=== PATIENT | female | born 2000 | race Caucasian/White ===

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

== ENCOUNTER 2020-08-02 21:37 | Emergency (ER) | payer BC, OTHER ==
--- OUTSIDE RECORDS SUMMARY | 2020-08-02 21:40 | XMS REPORT | Continuity of Care Document ---
:2000 Author Organization [facility] t Address 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 [place] knee in knee 10-26 [facility]: st 00 Anxiety Anxiety Disease Active [place] 07-07 [facility] 00:00: st 00 Syncope Syncope Disease Active [place] and and 07-07 [facility] collapse collapse 00:00: st 00 Tension-ty Tension-ty Disease Active [place] pe pe 07-07 [facility] headache, headache, 00:00: st not not 00 intractabl intractabl e e Allergies, Adverse Reactions, Alerts Allergy Allergy Status Severity Reaction(s) Onset Inactive Treating Comm ents Source Name Type Date Date Clinician Penicill Propensi Active Hives 2018-10 [place] to 11-14 [facility] adverse 00:00: st reaction 00 s to drug Family History Family Member Diagnosis Comments Start Date Stop Date Source Natural father No Known Problems Nanette kessler Religion Natural mother No Known Problems Nanette kessler Religion Natural sister No Known Problems Nanette Romero Social History Social Habit Start Date Stop Date Quantity Comments Source Sex Assigned At [facility] ethodist Tobacco use and 2019-09-13 2019-09-13 Never used [facility] ethodist exposure 00:00:00 00:00:00 Alcohol intake 2019-09-13 2019-09-13 Current [facility] thodist 00:00:00 00:00:00 non-drinker of alcohol (finding) Smoking Status Start Date Stop Date Source Never smoker [place] [facility] t Medications Ordered Filled Start Stop Current Ordering Indication Dosage Frequency Signature Comments Components Source Medication Medication Date Date Medication? Clinician (SIG) Name Name meloxicam 2016-10 2019- No 15mg QD Take 1 [place] (MOBIC) 15 09-13 tablet (15 Me th[facility] mg tablet 00:00: 00:00 mg total) st 00 :00 by mouth daily. amitriptyli 2018- No 10mg Take 10 mg [place] (ELAVIL) 07-07 by mouth. Me thodi 10 MG 00:00: 00:00 st tablet 00 :00 Vital Signs Vital Name Observation Time Observation Value Comments Source Systolic blood 2019-09-13 15:31:00 114 mm[Hg] [place] [facility] pressure Diastolic blood 2019-09-13 15:31:00 76 mm[Hg] [place] [facility] pressure Heart rate 2019-09-13 15:31:00 84 /min [place] Religion Body temperature 2019-09-13 15:31:00 36.67 [place] [facility] Body height 2019-09-13 15:31:00 165.1 cm [place] [facility] Body weight 2019-09-13 15:31:00 95.709 kg Jj Bushist BMI 2019-09-13 15:31:00 35.11 kg/m2 [place] [facility] Oxygen saturation in 2019-09-13 15:31:00 97 /min [place] [facility] Arterial blood by Pulse oximetry Procedures Procedure Date / Time Performed Performing Clinician Sourc e US GALLBLADDER 2019-09-20 09:00:00 Deja Cruz Plan of Care Planned Activity Planned Date Details Comments Source Future Scheduled 2020-09-13 CHLAMYDIA Postponed from Jj Lynch ethodist Test 00:00:00 SCREENING [code = 2015 (Not CHLAMYDIA Indicated) SCREENING] Future Scheduled 2020-05-12 INFLUENZA VACCINE [place] [facility] Test 00:00:00 [code = INFLUENZA VACCINE] Encounters Start End Encounter Admission Attending Care Care Encounter Source Date/Time Date/Time Type Type Clinicians Facility Department ID 2019-05-05 2019-05-05 Emergency E [id number] 20:27:00 20:27:00 Results Test Description Test Time Test Results Result Source Comments Comments US Gallbladder 2019-09-11 Interface, Radiology [place] 0 Results Incoming - Method ist 09:50:01 09/20/2019 9:53 AM CSTEXAMINATION: US GALLBLADDERCLINICAL HISTORY: 18 years Female R10.11 Right upper quadrant pain, RUQ pain cholecystitis suspectedCOMPARISON: None.FINDINGS:Gallbladd er: The gallbladder is without evidence of calculi. The gallbladder wall is not thickened and there is no pericholecystic fluid.CBD: 3 mm, within normal limits.Liver: The liver demonstrates normal echogenicity without focal mass or intrahepatic biliary ductal dilatation.Portal vein: The portal vein demonstrates normal hepatopetal flow. The portal vein measures 0.9 cm.IMPRESSION:Normal gallbladder ultrasound examination.[id number]
--- OUTSIDE RECORDS SUMMARY | 2020-08-02 21:40 | XMS REPORT | Clinical Summary ---
:2000 Author Organization [facility] Address [address] [place] [address] Care Team Providers Name Role Phone Heather Cruz MD Primary Care Provider Allergies Active Allergy Reactions Severity Noted Date Comments Penicillins Hives 09/13/2019 Medications Medication Sig Dispensed Refills Start Date End Date Status amitriptyline Take 10 mg 0 07/07/2016 Disc ontinued (Med (ELAVIL) 10 MG by mouth. 9 List Cleanup) tablet meloxicam (MOBIC) Take 1 21 tablet 0 08/04/2017 D iscontinued (Med 15 mg tablet tablet (15 9 List C leanup) mg total) by mouth daily. Active Problems Problem Noted Date Loose body in knee 08/26/2016 Anxiety 07/07/2016 Syncope and collapse 07/07/2016 Tension-type headache, not intractable 07/07/2016 Encounters Date Type Specialty Care Team Description 09/20/2019 Hospital Encounter Radiology Deja Cruz abdom inal pain MD Heather 09/20/2019 Orders Only Family Medicine Deja Cruz pain (Pr imary Dx) MD Heather 09/13/2019 Office Visit Family Medicine Deja Cruz abdomina l pain MD Heather (Primary Dx) after 08/02/2019 Surgical History Surgery Date Site/Laterality Comments ORTHOPEDIC SURGERY 09/10/2017 Right knee Family History Medical History Relation Name Comments No Known Problems Father No Known Problems Mother No Known Problems Sister Relation Name Status Comments Father Alive Mother Alive Sister Alive Social History Tobacco Use Types Packs/Day Years Used Date Never Smoker Smokeless Tobacco: Never Used Tobacco Cessation: Counseling Given: No Alcohol Use Drinks/Week oz/Week Comments No Sex Assigned at Date Recorded Not on file Last Filed Vital Signs Vital Sign Reading Time Taken Comments Blood Pressure 114/76 09/13/2019 3:31 PM [facility] Pulse 84 09/13/2019 3:31 PM [facility] Temperature 36.7 C (98 F) 09/13/2019 3:31 PM [facility] Respiratory Rate - - Oxygen Saturation 97% 09/13/2019 3:31 PM [facility] Inhaled Oxygen Concentration - - Weight 95.7 kg (211 lb) 09/13/2019 3:31 PM [facility] Height 165.1 cm (5' 5") 09/13/2019 3:31 PM [facility] Body Mass Index 35.11 09/13/2019 3:31 PM [facility] Plan of Treatment Health Maintenance Due Date Last Done Comments INFLUENZA VACCINE 05/12/2020 CHLAMYDIA SCREENING 09/13/2020 Postponed fr om 2015 (Not Indicated) Procedures Procedure Name Priority Date/Time Associated Diagnosis Comme nts US GALLBLADDER Routine 09/20/2019 9:00 AM RUQ abdominal pain Results for this [facility] procedure are i n the results section . after 08/02/2019 Results US Gallbladder (09/20/2019 9:00 AM [facility]) Specimen Narrative Performed At EXAMINATION: US GALLBLADDER [facility] CLINICAL HISTORY: 18 years Female R10.11 Right upper q uadrant pain, RUQ pain cholecystitis suspected COMPARISON: None. FINDINGS: Gallbladder: The gallbladder is without evidence of ca lculi. The gallbladder wall is not thickened and th ere is no pericholecystic fluid. CBD: 3 mm, within normal limits. Liver: The liver demonstrates normal echogenicity with out focal mass or intrahepatic biliary ductal dilatation. Portal vein: The portal vein demonstrates normal hepat opetal flow. The portal vein measures 0.9 cm. IMPRESSION: Normal gallbladder ultrasound examinatio n. [id number] Procedure Note Hm Interface, Radiology Results Incoming - 09/20/2019 9:53 AM [facility] EXAMINATION: US GALLBLADDER CLINICAL HISTORY: 18 years Female R10.11 Right upper quadrant pain, RUQ pain cholecystitis suspected COMPARISON: None. FINDINGS: Gallbladder: The gallbladder is without evidence of calculi. The gallbladder wall is not thickened and there is no pericholecystic fluid. CBD: 3 mm, within normal limits. Liver: The liver demonstrates normal ech ogenicity without focal mass or intrahepatic biliary ductal dilatation. Portal vein: The portal vein demonstrate s normal hepatopetal flow. The portal vein measures 0.9 cm. IMPRESSION: Normal gallbladder ultrasound examinatio n. 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
[2020-08-02] MEDS ORDERED: KETOROLAC 30 MG/ML INJ ONE (23:04)
[2020-08-02 23:10] LABS: Absolute Lymphocytes (CBC) 3.3 K/uL (0.7-4.9); Basophils % 0.2 % (0-1.3); Hematocrit 38.6 % (36.0-45.0); MPV 7.9 fL (7.6-11.3); RBC Red Blood Cell Count 4.95 M/uL (3.86-4.86)
[2020-08-02 23:11] LABS: Protime INR 1.02
[2020-08-02 23:18] LABS: ALT/SGPT 21 U/L (12-78); AST/SGOT 14 U/L (15-37); Albumin 3.9 g/dL (3.4-5.0); Alkaline Phosphatase 86 U/L (45-117); BUN Blood Urea Nitrogen 7 mg/dL (7-18); Bicarbonate 26 mmol/L (21-32); Bilirubin Direct < 0.1 mg/dL (0-0.2); Bilirubin Total 0.3 mg/dL (0.2-1.0); CKMB Creatine Kinase MB < 1.0 ng/mL (0.3-3.6); Creatine Phosphokinase 62 U/L (26-192); Glucose Level 87 mg/dL (74-106); Lipase 93 U/L (73-393); Magnesium 2.2 mg/dL (1.8-2.4); NT PRO-BNP 17 pg/mL (<125); Potassium 3.7 mmol/L (3.5-5.1); Protein, Total 8.6 g/dL (6.4-8.2); Sodium Level 139 mmol/L (136-145); Troponin (Emerg Dept Use Only) < 0.02 ng/mL (0.0-0.045)
[2020-08-03 00:45] LABS: Urine Blood 3+ (NEG); Urine Glucose NEGATIVE (NEG); Urine Protein TRACE (NEG); Urine Specific Gravity >1.030 (1.005-1.030)
--- NOTE | 2020-08-03 02:01 | ER ---
Nurse's Notes [facility] Name: Myriam Marte Age: 19 yrs Sex: Female : 2000 Arrival Date: 08/02/2020 Time: 21:52 Bed 14 Private MD: Diagnosis: Strain of muscle and tendon of front wall of thorax;Strain of muscle and tendon of back wall of thorax Presentation: 08/02 22:12 Chief complaint: Patient states: 2 days ago she started having back pain which is bb similar to when she had pneumonia last year, the pain is getting worse making it difficult for her to take a deep breath. Coronavirus screen: At this time, the client does not indicate any symptoms associated with coronavirus-19. Ebola Screen: No symptoms or risks identified at this time. Initial Sepsis Screen: Does the patient meet any 2 criteria? No. Patient's initial sepsis screen is negative. Does the patient have a suspected source of infection? No. Patient's initial sepsis screen is negative. Risk Assessment: Do you want to hurt yourself or someone else? Patient reports no desire to harm self or others. Onset of symptoms was July 31, 2020. 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 - Social history:: Smoking status: Patient denies any tobacco usage or history of. Screenin:30 Abuse screen: Denies threats or abuse. Denies injuries from another. Nutritional ca1 screening: No deficits noted. Tuberculosis screening: No symptoms or risk factors identified. Fall Risk IV access (20 points). Assessment: 22:30 General: Appears in no apparent distress. comfortable, Behavior is calm, cooperative, ca1 appropriate for age. Pain: Complains of pain in back and right lateral posterior chest Pain currently is 6 out of 10 on a pain scale. Pain began 1 day ago. Neuro: Level of Consciousness is awake, alert, obeys commands, Oriented to person, place, time, situation. Cardiovascular: Heart tones S1 S2 present Capillary refill < 3 seconds Patient's skin is warm and dry. Rhythm is sinus rhythm. Respiratory: Airway is patent Respiratory effort is even, unlabored, Respiratory pattern is regular, symmetrical, Breath sounds are clear bilaterally. GI: Abdomen is round non-distended, Bowel sounds present X 4 quads. Abd is soft and non tender X 4 quads. : No signs and/or symptoms were reported regarding the genitourinary system. EENT: No signs and/or symptoms were reported regarding the EENT system. Derm: Skin is intact, is healthy with good turgor, Skin is pink, warm \T\ dry. Musculoskeletal: Circulation, motion, and sensation intact. Capillary refill < 3 seconds. 23:23 Reassessment: Patient appears in no apparent distress at this time. Patient and/or ca1 family updated on plan of care and expected duration. Pain level reassessed. Patient is alert, oriented x 3, equal unlabored respirations, skin warm/dry/pink. 08/03 02:09 Reassessment: Patient and/or family updated on plan of care and expected duration. Pain ea level reassessed. Patient is alert, oriented x 3, equal unlabored respirations, skin warm/dry/pink. Discharge instruction given to patient, verbalized the understanding of instruction. Pt left ED ambulatory tolerating well. Patient states symptoms have improved. Vital Signs: 08/02 22:12 BP 123 / 83; Pulse 101; Resp 18 S; Temp 99.3(O); Pulse Ox 99% on R/A; Weight 97.52 kg bb (R); Height 5 ft. 5 in. (165.10 cm) (R); Pain 7/10; 23:23 BP 125 / 72; Pulse 97; Resp 18 S; Pulse Ox 100% on R/A; ca1 08/03 02:00 BP 103 / 78; Pulse 80; Resp 18; Pulse Ox 98% ; ea 08/02 22:12 Body Mass Index 35.78 (97.52 kg, 165.10 cm) bb ED Course: 08/02 21:52 Patient arrived in ED. am2 22:07 Siddhartha Wilder MD is Attending Physician. tw4 22:18 Rika Foss, RYAN is Primary Nurse. ca1 22:23 Triage completed. bb 22:24 Arm band placed on Patient placed in an exam room, on a stretcher, on pulse oximetry. bb 22:30 Patient has correct armband on for positive identification. Placed in gown. Bed in low ca1 position. Call light in reach. Side rails up X 1. monitor technician on. Pulse ox on. NIBP on. Warm blanket given. 22:37 Inserted saline lock: 20 gauge in right antecubital area, using aseptic technique. ca1 Blood collected. 22:37 No provider procedures requiring assistance completed. Initial lab(s) drawn, by me, ca1 sent to lab. First set of blood cultures drawn by me. 22:41 EKG done, by ED staff, reviewed by Siddhartha Wilder MD. tt3 22:44 XRAY CXR (1 view) In Process Unspecified. EDMS 23:00 Second set of blood cultures drawn by me. ca1 23:03 Inserted saline lock: 22 gauge in right hand, using aseptic technique. Blood collected. ca1 08/03 00:48 CT Chest For PE Angio In Process Unspecified. EDMS 02:10 IV discontinued, intact, bleeding controlled, No redness/swelling at site. Pressure ea dressing applied. Administered Medications: 08/02 22:55 Drug: TORadol 30 mg Route: IVP; Site: right antecubital; ca1 08/03 02:10 Follow up: Response: No adverse reaction ea Outcome: 02:00 Discharge ordered by . tw4 02:10 Discharged to home ambulatory. ea 02:10 Condition: stable 02:10 Discharge instructions given to patient, Instructed on discharge instructions, follow up and referral plans. medication usage, Demonstrated understanding of instructions, follow-up care, medications, Prescriptions given X 1. 02:11 Patient left the ED. ea Signatures: Dispatcher [employer] EDMS Suly Clay RN RN Aicha Hernandes am2 Maribell Lantigua RN Siddhartha Salguero ea, MD MD tw4 Rika Foss RN RN ca1 Trim, Tyler tt3
--- NOTE | 2020-08-03 02:01 | EDPHYS ---
Physician Documentation [facility] Name: Myriam Marte Age: 19 yrs Sex: Female : 2000 Arrival Date: 08/02/2020 Time: 21:52 Bed 14 Private MD: ED Physician Siddhartha Wilder HPI: 08/02 23:15 This 19 yrs old Female presents to ER via Ambulatory with complaints of Back tw4 Pain. 23:15 The patient presents with pain that is acute. The symptoms are located in the right mid tw4 back. Onset: The symptoms/episode began/occurred 2 day(s) ago. The pain radiates to the right mid back. Associated signs and symptoms: The patient has no apparent associated signs or symptoms. The problem was sustained without known cause. Modifying factors: The patient symptoms are alleviated by rest, the patient symptoms are aggravated by any movement. The patient has not experienced similar symptoms in the past. 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 - Social history:: Smoking status: Patient denies any tobacco usage or history of. ROS: 23:15 Constitutional: Negative for fever, chills, and weight loss, Eyes: Negative for injury, tw4 pain, redness, and discharge, Cardiovascular: Negative for chest pain, palpitations, and edema, Respiratory: Negative for shortness of breath, cough, wheezing, and pleuritic chest pain, Abdomen/GI: Negative for abdominal pain, nausea, vomiting, diarrhea, and constipation, MS/Extremity: Negative for injury and deformity, Skin: Negative for injury, rash, and discoloration. 23:15 Back: Positive for pain at rest, pain with movement. Exam: 23:15 Constitutional: This is a well developed, well nourished patient who is awake, alert, tw4 and in no acute distress. Head/Face: Normocephalic, atraumatic. Chest/axilla: Normal chest wall appearance and motion. Nontender with no deformity. No lesions are appreciated. Cardiovascular: Regular rate and rhythm with a normal S1 and S2. No gallops, murmurs, or rubs. Normal PMI, no JVD. No pulse deficits. Abdomen/GI: Soft, non-tender, with normal bowel sounds. No distension or tympany. No guarding or rebound. No evidence of tenderness throughout. Back: No spinal tenderness. No costovertebral tenderness. Full range of motion. 23:15 Skin: Warm, dry with normal turgor. Normal color with no rashes, no lesions, and no evidence of cellulitis. MS/ Extremity: Pulses equal, no cyanosis. Neurovascular intact. Full, normal range of motion. Neuro: Awake and alert, GCS 15, oriented to person, place, time, and situation. Cranial nerves II-XII grossly intact. Motor strength 5/5 in all extremities. Sensory grossly intact. Cerebellar exam normal. Normal gait. 23:15 Respiratory: the patient does not display signs of respiratory distress, Breath sounds: rhonchi, that are moderate, are heard in the right posterior lower lobe. Vital Signs: 22:12 BP 123 / 83; Pulse 101; Resp 18 S; Temp 99.3(O); Pulse Ox 99% on R/A; Weight 97.52 kg bb (R); Height 5 ft. 5 in. (165.10 cm) (R); Pain 7/10; 23:23 BP 125 / 72; Pulse 97; Resp 18 S; Pulse Ox 100% on R/A; ca1 08/03 02:00 BP 103 / 78; Pulse 80; Resp 18; Pulse Ox 98% ; ea 08/02 22:12 Body Mass Index 35.78 (97.52 kg, 165.10 cm) bb MDM: 08/02 22:07 Patient medically screened. tw4 08/03 06:13 Data reviewed: vital signs, nurses notes. Data reviewed: lab test result(s), cardiac tw4 enzymes, CBC, hepatic panel, radiologic studies, CT scan, plain films. Data interpreted: Pulse oximetry: Interpretation:. Test interpretation: by ED physician or midlevel provider: plain radiologic studies. Counseling: I had a detailed discussion with the patient and/or guardian regarding: the historical points, exam findings, and any diagnostic results supporting the discharge/admit diagnosis, lab results, radiology results. Medication response: Toradol markedly relieved the patient's pain. Response to treatment: and as a result, I will discharge patient. 08/02 22:12 Order name: Blood Culture Adult (2) tw4 08/02 22:12 Order name: BMP; Complete Time: 23:32 tw4 08/02 23:32 Interpretation: Normal except: GFR 88. tw4 08/02 22:12 Order name: CBC with Diff; Complete Time: 23:32 tw4 08/02 23:32 Interpretation: Normal except: WBC 12.2; MCV 78.0; RBC 4.95; MCH 26.4. tw4 08/02 22:12 Order name: Ckmb; Complete Time: 23:32 tw4 08/02 23:32 Interpretation: Within normal limits: CKMB < 1.0. tw4 08/02 22:12 Order name: CPK; Complete Time: 23:32 tw4 08/02 23:32 Interpretation: Within normal limits: CPK 62. tw4 08/02 22:12 Order name: D-Dimer; Complete Time: 23:32 tw4 08/02 23:33 Interpretation: Within normal limits: D-DIMER 496. tw4 08/02 22:12 Order name: Hepatic Function; Complete Time: 23:32 tw4 08/02 23:32 Interpretation: Normal except: AST 14; TP 8.6; GLOB 4.7; A/G 0.8. tw4 08/02 22:12 Order name: Lipase; Complete Time: 23:32 tw 08/02 23:33 Interpretation: Within normal limits: LIP 93. tw4 08/02 22:12 Order name: Magnesium; Complete Time: 23:32 tw 08/02 23:33 Interpretation: Within normal limits: MG 2.2. tw08/02 22:12 Order name: NT PRO-BNP; Complete Time: 23:32 tw4 08/02 23:33 Interpretation: Within normal limits: NT PRO-BNP 17. tw4 08/02 22:12 Order name: PT-INR; Complete Time: 23:32 tw4 08/02 23:33 Interpretation: Within normal limits: PT 12.0. tw4 08/02 22:12 Order name: Ptt, Activated; Complete Time: 23:32 tw4 08/02 23:33 Interpretation: Within normal limits: PTT 31.8. tw4 08/02 22:12 Order name: Troponin (emerg Dept Use Only); Complete Time: 23:32 tw4 08/02 23:33 Interpretation: Within normal limits: TROPED < 0.02. tw4 08/02 22:12 Order name: XRAY CXR (1 view) tw4 08/02 22:12 Order name: EKG; Complete Time: 22:14 tw4 08/02 22:12 Order name: Cardiac monitoring; Complete Time: 22:42 tw4 08/02 22:12 Order name: EKG - Nurse/Tech; Complete Time: 22:42 tw4 08/02 22:12 Order name: IV Saline Lock; Complete Time: 22:42 tw4 08/02 22:12 Order name: Labs collected and sent; Complete Time: 22:42 tw4 08/02 22:12 Order name: O2 Per Protocol; Complete Time: 22:42 tw4 08/02 22:12 Order name: O2 Sat Monitoring; Complete Time: 22:42 tw4 08/02 23:34 Order name: CT Chest For PE Angio tw4 08/03 00:11 Order name: Urine Test (obtain specimen); Complete Time: 01:32 tw4 08/03 00:18 Order name: Urine Dipstick--Ancillary (enter results); Complete Time: 00:53 ar5 08/03 00:53 Interpretation: Normal except: UBLD 3+. tw4 08/03 00:18 Order name: Urine --Ancillary (enter results); Complete Time: 00:49 ar5 08/03 00:49 Interpretation: USPGR >1.030. tw4 EC:13 Rate is 97 beats/min. Rhythm is regular. QRS [place] is Normal. WA interval is normal. QRS tw4 interval is normal. QT interval is normal. No Q waves. T waves are Flattened in lead III. No ST changes noted. Clinical impression: NSR w/ Non-specific ST/T Changes. Interpreted by me. Reviewed by me. Administered Medications: 08/02 22:55 Drug: TORadol 30 mg Route: IVP; Site: right antecubital; ca1 08/03 02:10 Follow up: Response: No adverse reaction ea Disposition: 08/03/20 02:00 Discharged to Home. Impression: Strain of muscle and tendon of front wall of thorax, Strain of muscle and tendon of back wall of thorax. - Condition is Stable. - Discharge Instructions: Thoracic Strain. - Prescriptions for Ibuprofen 800 mg Oral Tablet - take 1 tablet by ORAL route every 12 hours As needed take with food; 20 tablet. Tylenol- Codeine #3 300-30 mg Oral Tablet - take 2 tablet by ORAL route every 6 hours As needed; 6 tablet. - Medication Reconciliation Form, Thank You Letter, Antibiotic Education, Prescription Opioid Use form. - Follow up: Private Physician; When: Upon discharge from the Emergency Department; Reason: Recheck today's complaints, Continuance of care, Re-evaluation by your physician. - Problem is new. - Symptoms have improved. Signatures: Dispatcher [employer] Suly Sánchez RN RN Maribell Soler RN RN ea Wadley, Terrence, MD MD tw4 Pipo, Rika RN RN ca1 Corrections: (The following items were deleted from the chart) 00:16 00:00 TEST, SERUM+SC.LAB.BRZ ordered. [facility] 01:00 08/02 22:13 BLOOD CULTURE*+BA.LAB.BRZ ordered. [facility] 08/03 02:11 02:00 08/03/2020 02:00 Discharged to Home. Impression: Strain of muscle and tendon of ea front wall of thorax; Strain of muscle and tendon of back wall of thorax. Condition is Stable. Forms are Medication Reconciliation Form, Thank You Letter, Antibiotic Education, Prescription Opioid Use. Follow up: Private Physician; When: Upon discharge from the Emergency Department; Reason: Recheck today's complaints, Continuance of care, Re-evaluation by your physician. Problem is new. Symptoms have improved. tw4
[2020-08-03 02:26] VITALS: TEMP 99.3
[2020-08-03 02:29] VITALS: BP 103/78; O2SAT 98
--- NOTE | 2020-08-03 08:33 | RAD REPORT ---
EXAM DESCRIPTION: RAD - Chest Single View - 08/02/2020 10:44 pm CLINICAL HISTORY: RIB PAIN - RIGHT Chest pain. COMPARISON: Chest For Pe Angio dated 08/03/2020 FINDINGS: Portable technique limits examination quality. The lungs are grossly clear. The heart is normal in size. No displaced fractures. IMPRESSION: No acute intrathoracic process suspected.
--- NOTE | 2020-08-03 15:09 | RAD REPORT ---
EXAM DESCRIPTION: CT Angiography Chest With Intravenous Contrast CLINICAL HISTORY: The patient is 19 years old and is Female; CHEST PAIN TECHNIQUE: Axial computed tomographic angiography images of the chest with intravenous contrast. S agittal and coronal reformatted images were created and reviewed. This CT exam was performed using one or more of the following dose reduction techniques: automated exposure control, adjustment of t he mA and/or kV according to patient size, and/or use of iterative reconstruction technique. MIP reconstructed images were created and reviewed. COMPARISON: No relevant prior studies available. FINDINGS: PULMONARY ARTERIES: Unremarkable. No pulmonary embolism. AORTA: No acute findings. No thoracic aortic aneurysm. LUNGS: Unremarkable. No mass. No consolidation. PLEURAL SPACE: Unremarkable. No significant effusion. No pneumothorax. HEART: Unremarkable. No cardiomegaly. No significant pericardial effusion. No evidence of RV dysfunction. BONES/JOINTS: No acute fracture. No dislocation. SOFT TISSUES: Unremarkable. LYMPH NODES: Unremarkable. No enlarged lymph nodes. IMPRESSION: Normal chest CTA. No pulmonary embolism. Electronically signed by: Janny Hale MD 08/03/2020 1:15 AM CDT Due to temporary technical issues with the PACS/Fluency reporting system, reports are being signed by the in house radiologist without review as a courtesy to ensure prompt reporting. The interpreting r adiologist is fully responsible for the content of the report.
--- NOTE | 2020-08-04 09:34 | EKG ---
Test Date: 2020-08-02 Test Time: 22:40:46 Hand Lacer: TLT MEASUREMENT RESULTS: Intervals: Rate: 97 MI: 150 QRSD: 90 QT: 322 QTc: 408 Outing: P: 50 MI: 150 QRS: 68 T: 18 INTERPRETIVE STATEMENTS: Normal sinus rhythm Nonspecific T wave abnormality Abnormal ECG Compared to ECG 09/21/2007 12:21:06 T-wave abnormality now present Electronically Signed On 08-04-20 09:31:16 CDT by Frank Mora
== END 2020-08-03 02:11 | disposition home or self-care (01) ==
LOC: ER 21:37
DX: S29.012A Strain of muscle and tendon of back wall of thorax, initial encounter (principal); S29.011A Strain of muscle and tendon of front wall of thorax, initial encounter; F41.9 Anxiety disorder, unspecified; Z88.0 Allergy status to penicillin
CPT/HCPCS: 93005; 87040 ×2; 85025; 80048; 36415; 83735; 82550; 81025; 85610; 85379; 80076; 85730; 81003; 84484; 82553; 83690; 83880; 71275; 71045; 96374; 99284; Q9967

== ENCOUNTER 2021-09-26 09:07 | Emergency (ER) | payer BC ==
--- OUTSIDE RECORDS SUMMARY | 2021-09-26 09:10 | XMS REPORT | Continuity of Care Document ---
:2000 Author Organization [facility] t Address [address] [place] [address] Care Team Providers Name Role Phone Unavailable Unavailable Unavailable Problems This patient has no known problems. Allergies, Adverse Reactions, Alerts This patient has no known allergies or adverse reactions. Medications This patient has no known medications. Procedures This patient has no known procedures. Encounters Start End Encounter Admission Attending Care Care Encounter Source Date/Time Date/Time Type Type Clinicians Facility Department ID 2021-06-06 2021-06-06 Outpatient [facility] [id number] [facility] [address] 00:00:00 00:00:00 [facility] 2021-01-22 2021-01-22 Outpatient [facility] [id number] [facility]00 [facility] 2019-05-05 2019-05-05 Emergency [id number] [facility] 20:27:00 20:27:00 Results This patient has no known results.
[2021-09-26 10:54] LABS: SARS-COV-2 RT PCR NEGATIVE (NEGATIVE)
--- NOTE | 2021-09-26 11:08 | ER ---
Nurse's Notes [facility] Name: Myriam Marte Age: 20 yrs Sex: Female : 2000 Arrival Date: 09/26/2021 Time: 09:09 Bed 12 Private MD: Diagnosis: Acute upper respiratory infection, unspecified Presentation: 09/26 09:22 Chief complaint: Patient states: Congestion, coughing, sore thoart, fever and pain in ww side of chest from coughing that started 2-3 days ago. Coronavirus screen: Vaccine status: Patient reports receiving the 2nd dose of the covid vaccine. Client denies travel out of the [place] in the last 14 days. Ebola Screen: Patient negative for fever greater than or equal to 101.5 degrees Fahrenheit, and additional compatible Ebola Virus Disease symptoms Patient denies exposure to infectious person. Patient denies travel to an Ebola-affected area in the 21 days before illness onset. Initial Sepsis Screen: Does the patient meet any 2 criteria? No. Patient's initial sepsis screen is negative. Does the patient have a suspected source of infection? No. Patient's initial sepsis screen is negative. Risk Assessment: Do you want to hurt yourself or someone else? Patient reports no desire to harm self or others. Onset of symptoms was September 24, 2021. : Method Of Arrival: Ambulatory ww 09:22 Acuity: YARED 4 ww Triage Assessment: 09:24 General: Appears in no apparent distress. well groomed, well developed, well nourished, ww Behavior is calm, cooperative, appropriate for age. Pain: Complains of pain in back and chest. EENT: Reports nasal congestion pain in mouth and chin. Neuro: No deficits noted. Level of Consciousness is awake, alert, obeys commands, Oriented to person, place, time, situation, Appropriate for age Gait is steady, Speech is normal. Cardiovascular: No deficits noted. Denies chest pain, Capillary refill < 3 seconds. Respiratory: No deficits noted. Reports cough that is Airway is patent Respiratory effort is even, unlabored, Respiratory pattern is regular, symmetrical. GI: No deficits noted. No signs and/or symptoms were reported involving the gastrointestinal system. GI: Reports nausea, vomiting. : No deficits noted. No signs and/or symptoms were reported regarding the genitourinary system. Derm: No deficits noted. No signs and/or symptoms reported regarding the dermatologic system. Skin is intact, Skin is pink, warm \\T\\ dry. Derm:. Musculoskeletal: No deficits noted. No signs and/or symptoms reported regarding the musculoskeletal system. 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 - Social history:: Smoking status: Patient denies any tobacco usage or history of. Screenin:18 Abuse screen: Denies threats or abuse. Denies injuries from another. Nutritional ww screening: No deficits noted. Tuberculosis screening: No symptoms or risk factors identified. Fall Risk None identified. Assessment: 11:18 Reassessment: Patient appears in no apparent distress at this time. General: Appears in ww no apparent distress. comfortable, Behavior is calm, cooperative, appropriate for age. Neuro: Level of Consciousness is awake, alert, obeys commands, Oriented to person, place, time, situation, Appropriate for age Speech is normal. Respiratory: Reports cough that is Airway is patent Respiratory effort is even, unlabored, Respiratory pattern is regular, symmetrical, Breath sounds are clear. EENT: Nares with drainage noted Throat is pink Reports nasal discharge. Vital Signs: 09:22 BP 128 / 89; Pulse 93; Resp 18; Temp 97.3; Pulse Ox 98% on R/A; Weight 99.79 kg; Height ww 5 ft. 5 in. (165.10 cm); Pain 0/10; 11:18 BP 118 / 69; Pulse 91; Resp 18; Pulse Ox 96% on R/A; ww 09:22 Body Mass Index 36.61 (99.79 kg, 165.10 cm) ww ED Course: :09 Patient arrived in ED. as 09:09 Ken[facility] Fajardo [facility]-C [facility]. kb 09:09 Galindo Peterson MD is Attending Physician. kb 09:24 Triage completed. ww 09:24 Arm band placed on left wrist. ww 09:29 Kristal Corona, RYAN is Primary Nurse. ww 09:37 Group A Streptococcus Rapid Sc Sent. ww 09:37 COVID-19/FLU A+B/RSV (Document "Date of Onset" if Symptomatic) Sent. ww 09:37 Strep Sent. ww 11:18 Patient has correct armband on for positive identification. Bed in low position. Call ww light in reach. 11:18 No provider procedures requiring assistance completed. Patient did not have IV access ww during this emergency room visit. Administered Medications: No medications were administered Outcome: 11:08 Discharge ordered by . brie 11:18 Discharged to home ambulatory. ww 11:18 Condition: stable 11:18 Discharge instructions given to patient, Instructed on discharge instructions, follow up and referral plans. safety practices, Demonstrated understanding of instructions, follow-up care. 11:20 Patient left the ED. ww Signatures: Kenzie Fajardo, TEAM PHYSICIAN-C TEAM PHYSICIAN-Beti Reveles Whitney, RN RN ww Corrections: (The following items were deleted from the chart) 09:24 09:22 Pulse 93bpm; Resp 18bpm; Pulse Ox 98% RA; Temp 97.3F; ww ww
--- NOTE | 2021-09-26 11:09 | EDPHYS ---
Physician Documentation [facility] Name: Myriam Marte Age: 20 yrs Sex: Female : 2000 Arrival Date: 09/26/2021 Time: 09:09 Bed 12 Private MD: ED Physician Galindo Peterson HPI: 09/26 16:42 This 20 yrs old Female presents to ER via Ambulatory with complaints of Sore Throat, kb Painful Cough, Congestion. 16:42 The patient or guardian reports cough, that is intermittent, described as mild. Onset: kb The symptoms/episode began/occurred 3 day(s) ago. Severity of symptoms: At their worst the symptoms were moderate, in the emergency department the symptoms are unchanged. Modifying factors: The symptoms are alleviated by nothing, the symptoms are aggravated by nothing. Associated signs and symptoms: Pertinent positives: fever, rhinorrhea. The patient has not experienced similar symptoms in the past. The patient has not recently seen a physician. Pt reports cough, congestion, sore throat and fever for 3 days. . 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 - Social history:: Smoking status: Patient denies any tobacco usage or history of. ROS: 16:41 Abdomen/GI: Negative for abdominal pain, nausea, vomiting, diarrhea, and constipation. kb 16:41 Constitutional: Positive for fever. 16:41 ENT: Positive for rhinorrhea, sinus congestion, sore throat. 16:41 Respiratory: Positive for cough. 16:41 All other systems are negative. Exam: 16:41 Constitutional: This is a well developed, well nourished patient who is awake, alert, kb and in no acute distress. Head/Face: Normocephalic, atraumatic. ENT: Moist Mucous membranes Cardiovascular: Regular rate and rhythm with a normal S1 and S2. No gallops, murmurs, or rubs. No pulse deficits. Respiratory: Respirations even and unlabored. No increased work of breathing. Talking in full sentences Skin: Warm, dry with normal turgor. Normal color. MS/ Extremity: Pulses equal, no cyanosis. Neurovascular intact. Full, normal range of motion. Neuro: Awake and alert, GCS 15, oriented to person, place, time, and situation. Moves all extremities. Normal gait. Psych: Awake, alert, with orientation to person, place and time. Behavior, mood, and affect are within normal limits. Vital Signs: 09:22 BP 128 / 89; Pulse 93; Resp 18; Temp 97.3; Pulse Ox 98% on R/A; Weight 99.79 kg; Height ww 5 ft. 5 in. (165.10 cm); Pain 0/10; 11:18 BP 118 / 69; Pulse 91; Resp 18; Pulse Ox 96% on R/A; ww 09:22 Body Mass Index 36.61 (99.79 kg, 165.10 cm) ww MDM: 09:26 Patient medically screened. kb 16:41 Data reviewed: vital signs, nurses notes. Data interpreted: Pulse oximetry: on room air kb is 96 %. Interpretation: normal. Counseling: I had a detailed discussion with the patient and/or guardian regarding: the historical points, exam findings, and any diagnostic results supporting the discharge/admit diagnosis, lab results, the need for outpatient follow up, a family practitioner, to return to the emergency department if symptoms worsen or persist or if there are any questions or concerns that arise at home. 09/26 09:26 Order name: Strep kb 09/26 09:26 Order name: COVID-19/FLU A+B/RSV (Document "Date of Onset" if Symptomatic); Complete kb Time: 10:55 09/26 09:26 Order name: Group A Streptococcus Rapid Sc; Complete Time: 10:41 EDMS 09/26 10:41 Order name: Throat Culture EDMS Administered Medications: No medications were administered Disposition: 19:48 Co-signature as Attending Physician, Galindo Peterson MD I agree with the assessment and kdr plan of care. Disposition Summary: 09/26/21 11:08 Discharge Ordered Location: Home kb Condition: Stable kb Diagnosis - Acute upper respiratory infection, unspecified kb Followup: kb - With: Emergency Department - When: As needed - Reason: Worsening of condition Followup: kb - With: Private Physician - When: 2 - 3 days - Reason: Recheck today's complaints, Continuance of care, Re-evaluation by your physician Discharge Instructions: - Discharge Summary Sheet kb - Upper Respiratory Infection, Adult, [id number] kb - Viral Respiratory Infection, [id number] kb Forms: - Medication Reconciliation Form kb - Thank You Letter kb - Antibiotic Education kb - Prescription Opioid Use kb Signatures: Dispatcher [employer] Kenzie Evans, BELLOC Galindo Bond MD MD kdr Wood, Whitney, RN RN ww
[2021-09-26 11:29] VITALS: TEMP 97.3
[2021-09-26 11:31] VITALS: BP 118/69; O2SAT 96
== END 2021-09-26 11:20 | disposition home or self-care (01) ==
LOC: ER 09:07
DX: J06.9 Acute upper respiratory infection, unspecified (principal); Z20.822 Contact with and (suspected) exposure to COVID-19
CPT/HCPCS: 87070; 87081; 0241U; 99283

== ENCOUNTER 2023-05-19 12:26 | Emergency (ER) | payer BC ==
--- OUTSIDE RECORDS SUMMARY | 2023-05-19 12:29 | XMS REPORT | Continuity of Care Document ---
:2000 Author Organization [facility] t Address 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 knee [address] [facility] 00:00: Hospita 00 l Anxiety Anxiety Disease Active Methodi 07-07 st 00:00: Hospita 00 l Syncope Syncope Disease Active Methodi and and 07-07 collapse collapse 00:00: Hospit a 00 l Tension-ty Tension-ty Disease Active M ethodi pe pe 07-07 st headache, headache, 00:00: Hosp genet not not 00 l intractabl intractabl e e [id number] Attention Problem Active Comm on deficit Spirit hyperactiv - [facility] tly inattentiv e type [id number] Other Problem Active Common chronic Spirit pain - [facility] Allergies, Adverse Reactions, Alerts Allergy Allergy Status Severity Reaction(s) Onset Inactive Treating Comm ents Source Name Type Date Date Clinician Penicill Propensi Active Hives 2018-10 Method i ins ty to 11-14 st adverse 00:00: Hospita reaction 00 l s to drug Social History Social Habit Start Date Stop Date Quantity Comments Source History of Tobacco [facility] Use [facility] Sexual orientation [facility] Gender identity [facility] Alcohol intake 2019-09-13 2019-09-13 Current [facility] 00:00:00 00:00:00 non-drinker of Hospital alcohol (finding) History of Social 2019-09-13 2019-09-[address] function 00:00:00 00:00:00 Hospital Tobacco use and 2017-08-04 2017-08-04 Smokeless [facility] exposure 00:00:00 00:00:00 tobacco non-user [facility] Sex Assigned At [birth year] W[facility] 00:00:00 00:00:00 Hospital Smoking Status Start Date Stop Date Source Never Smoker [facility] Medications This patient has no known medications. Vital Signs Vital Name Observation Time Observation Value Comments Source height 2021-01-22 13:30:00 64 [in_i] [facility] weight 2021-01-22 13:30:00 227.9 [lb_av] [facility] temperature 2021-01-22 13:30:00 97.3 [degF] [facility] bmi 2021-01-22 13:30:00 39.11 kg/m2 [facility] oximetry 2021-01-22 13:30:00 96 % [facility] respiratory rate 2021-01-22 13:30:00 16 /min [facility] blood pressure 2021-01-22 13:30:00 130 mm[Hg] [facility] systolic [facility] blood pressure 2021-01-22 13:30:00 71 mm[Hg] [facility] diastolic [facility] Procedures This patient has no known procedures. Plan of Care Planned Activity Planned Date Details Comments Source Future Scheduled 2023-05-13 COVID-19 VACCINE (#1) [facility] Test 11:16:31 [code = COVID-19 VACCINE (#1)] Future Scheduled 2023-05-13 Screening for [facility] Test 11:16:31 Chlamydia trachomatis (procedure) [code = 553150281] Future Scheduled 2023-05-13 Screening for [facility] Test 11:16:31 malignant neoplasm of cervix (procedure) [code = 174285074] Future Scheduled 2023-05-13 INFLUENZA VACCINE [facility] Test 11:16:31 [code = INFLUENZA VACCINE] Encounters Start End Encounter Admission Attending Care Care Encounter Source Date/Time Date/Time Type Type Clinicians Facility Department ID 2023-05-07 Outpatient Samson, STLMLC STLMLC [id number] Common 16:04:00 Mike [id number] [facility] 2023-05-05 Outpatient Samson, STLMLC STLMLC [id number] Common 13:10:00 Mike [id number] [facility] 2023-04-09 Outpatient Samson, STLMLC STLC [id number] Common 08:38:00 [facility] [id number] [facility] 2023-04-07 Outpatient Samson, STLMLC STLC [id number] Common 13:58:01 Mike [id number] [facility] 2021-11-06 Outpatient Samson, STLMLC STLC [id number] Common 13:44:51 Mike [id number] [facility] 2021-11-06 Outpatient Samson, STLMLC STLMLC [id number] Common 12:51:19 [facility] [id number] [facility] 2021-06-06 2021-06-06 (WEB) STLMLC STLC [id number] Co mmon 00:00:00 00:00:00 [facility] 2021-01-22 2021-01-22 OFFICE STLC STLC [id number] Co mmon 00:00:00 00:00:00 VISIT NEW Cathy it PT LEVEL 3 [facility] Heart 2019-05-05 2019-05-05 Emergency E MHTW MHTW [id number] MHTW 20:27:00 20:27:00 Results This patient has no known results.
[2023-05-19] MEDS ORDERED: NA CHLORIDE 0.9% 1,000 ML ONE (13:30)
[2023-05-19] MEDS ORDERED: FAMOTIDINE 20 MG/2 ML VIAL IV ONE (13:30)
[2023-05-19] MEDS ORDERED: ONDANSETRON 4 MG/2 ML VIAL ONE (13:30)
[2023-05-19 13:48] LABS: Absolute Lymphocytes (CBC) 3.2 K/uL (0.7-4.9); Lymphocytes % 29.9 % (15.3-44.8); MCV 76.2 fL (80-100); MPV 7.5 fL (7.6-11.3); Platelets 383 thou/uL (152-406); RBC Red Blood Cell Count 5.52 M/uL (3.86-4.86)
[2023-05-19 14:04] LABS: Albumin 4.1 g/dL (3.4-5.0); Bilirubin Total 0.3 mg/dL (0.2-1.0); Potassium 3.8 mEq/L (3.5-5.1); Protein, Total 8.9 g/dL (6.4-8.2)
[2023-05-19] MEDS ORDERED: METOCLOPRAMIDE 10 MG/2mL INJ ONE (14:18)
[2023-05-19] MEDS ORDERED: NACHLORIDE 0.45% 1,000 ML with POTASSIUM CL 20 MEQ IV SCH ×2 (14:30)
--- NOTE | 2023-05-19 15:04 | ER ---
Nurse's Notes [facility] Name: Myriam Marte Age: 22 yrs Sex: Female : 2000 Arrival Date: 05/19/2023 Time: 12:26 Bed 8 Private MD: Mike Samson Diagnosis: Nausea with vomiting, unspecified Presentation: 05/19 12:34 Chief complaint: Patient states: Vomiting since Thursday, unable to keep anything nj1 down. States she had a 100.1 temp last night. 12:34 Coronavirus screen: Vaccine status: Patient reports receiving the 2nd dose of the covid nj1 vaccine. Ebola Screen: Patient denies travel to an Ebola-affected area in the 21 days before illness onset. Initial Sepsis Screen: Does the patient meet any 2 criteria? HR > 90 bpm. No. Patient's initial sepsis screen is negative. Does the patient have a suspected source of infection? No. Patient's initial sepsis screen is negative. Risk Assessment: Do you want to hurt yourself or someone else? Patient reports no desire to harm self or others. Onset of symptoms was May 13, 2023. 12:34 Method Of Arrival: Ambulatory [facility] 12:34 Acuity: YARED 3 [facility] 12:52 Chief complaint: Patient states: n/v for 6 days. Coronavirus screen: Vaccine status: me1 Patient reports receiving the 2nd dose of the covid vaccine. At this time, the client does not indicate any symptoms associated with coronavirus-19. Ebola Screen: No symptoms or risks identified at this time. Initial Sepsis Screen: Does the patient meet any 2 criteria? HR > 90 bpm. No. Patient's initial sepsis screen is negative. Does the patient have a suspected source of infection? Yes: Acute abdominal pain. Risk Assessment: Do you want to hurt yourself or someone else? Patient reports no desire to harm self or others. Onset of symptoms was May 13, 2023. 12:52 Method Of Arrival: Ambulatory [facility] 12:52 Acuity: YARED 3 me1 Triage Assessment: 12:52 General: Appears uncomfortable, obese, well groomed, well developed, Behavior is calm, me1 cooperative, appropriate for age, Reports fever for > 3 days, fatigue for n/v/d x 6 days. C/o epigastic pain that is dull and continuous. Pain: Complains of pain in abdomen Pain does not radiate. Pain currently is 5 out of 10 on a pain scale. Quality of pain is described as dull, Pain began 6 days ago Is continuous. Neuro: Level of Consciousness is awake, alert, obeys commands, Oriented to person, place, time, situation, Appropriate for age. Cardiovascular: Capillary refill < 3 seconds Patient's skin is warm and dry. Respiratory: Respiratory effort is even, unlabored, Respiratory pattern is regular, symmetrical. GI: Reports upper abdominal pain, diarrhea, nausea, vomiting, for the past 6 days. :. 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 - Social history:: Smoking status: Patient denies any tobacco usage or history of. Screenin:02 [facility] ED Fall Risk Assessment (Adult) Score/Fall Risk Level 0 - 2 = Low Risk. Abuse ks1 screen: Denies threats or abuse. Nutritional screening: No deficits noted. Tuberculosis screening: No symptoms or risk factors identified. Assessment: 13:01 General: See triage assessment. . GI: Reports diarrhea, nausea, vomiting, since last ks1 Thursday. 14:13 Reassessment: Patient states feeling better. Patient states symptoms have improved. ks1 Vital Signs: 12:34 BP 132 / 76; Pulse 104; Resp 18; Temp 98.5(O); Pulse Ox 98% on R/A; Weight 104.78 kg; nj1 Height 5 ft. 5 in. ; Pain 5/10; 12:52 BP 102 / 78; Pulse 111; Resp 16; Temp 98.2(O); Pulse Ox 99% on R/A; Weight 104.78 kg; ks1 Height 5 ft. 5 in. ; Pain 5/10; 14:13 BP 102 / 67; Pulse 104; Resp 17; Pulse Ox 98% on R/A; me1 14:30 BP 116 / 89; Pulse 93; Resp 17; Pulse Ox 100% on R/A; ks1 12:52 Body Mass Index 38.44 (104.78 kg, 165.1 cm) me1 12:34 Pain Scale: Adult nj1 12:52 Pain Scale: Adult me1 ED Course: 12:28 Patient arrived in ED. rg4 12:28 Mike Samson DO is Private Physician. rg4 12:30 Galindo Peterson MD is Attending Physician. kdr 12:34 Arm band placed on right wrist. nj1 12:48 Montse Manley, RYAN is Primary Nurse. me1 12:53 Triage completed. nj1 13:02 Allergy band placed. Bed in low position. Call light in reach. Side rails up X 1. me1 Provided Education on: POC. Verbalized understanding. . 13:02 No provider procedures requiring assistance completed. me1 15:03 Mike Samson DO is Referral Physician. kdr 15:16 IV discontinued, intact, bleeding controlled, No redness/swelling at site. Pressure me1 dressing applied. Administered Medications: 13:43 Drug: NS 0.9% IV 1000 ml Route: IV; Rate: 1 bolus; Site: left antecubital; me1 15:17 Follow up: IV Status: Completed infusion; IV Intake: 1000ml me1 13:43 Drug: Ondansetron IVP 4 mg Route: IVP; Site: left antecubital; me1 13:43 Drug: Famotidine IVP 20 mg Route: IVP; Site: left antecubital; me1 14:10 Drug: metoCLOPramide IVP 10 mg Route: IVP; Site: left antecubital; me1 15:20 Follow up: Response: Nausea is decreased me1 15:00 Not Given (Patient Refused): NS 0.45 % with KCl IV 20 mEq/L 1000 ml IV at 125 ml/hr onceph Medication: 13:02 VIS not applicable for this client. me1 Intake: 15:17 IV: 1000ml; Total: 1000ml. me1 Outcome: 15:03 Discharge ordered by . kdr 15:15 Discharged to home ambulatory. me1 15:15 Condition: stable 15:15 Discharge instructions given to patient, Instructed on discharge instructions, follow up and referral plans. medication usage, Demonstrated understanding of instructions, follow-up care, medications, Prescriptions given X 2. 15:16 Patient left the ED. me1 Signatures: Galindo Peterson MD MD kdr Shira Gongora rg4 Selena Alvarenga RN RN nj1 Montse Manley RN RN me1 Javier, Naomi RN ph
--- NOTE | 2023-05-19 15:04 | EDPHYS ---
Physician Documentation [facility] Name: Myriam Marte Age: 22 yrs Sex: Female : 2000 Arrival Date: 05/19/2023 Time: 12:26 Bed 8 Private MD: [facility] ED Physician Galnido Peterson HPI: 05/19 15:52 This 22 yrs old Female presents to ER via Ambulatory with complaints of Vomiting. kdr 15:52 Patient states she has been vomiting since Thursday she was taking the weight loss kdr medication we wjovia. Her physician told her to stop taking the medication but she is continue to vomit. She denies loss of bowel or bladder control. She denies significant abdominal pain. She has had minimal bowel movements but has continued to have flatus. Patient is nontoxic-appearing on initial presentation. Onset: The symptoms/episode began/occurred gradually, 6 day(s) ago. Severity of symptoms: At their worst the symptoms were mild moderate just prior to arrival, in the emergency department the symptoms are unchanged. The patient has not recently seen a physician. [employer]ER: 12:52 LMP 04/28/2023 me1 Historical: - Allergies: 12:34 PENICILLINS; nj1 - PMHx: 12:34 Anxiety; nj1 - PSHx: 12:34 Meniscus repair, right; nj1 - Immunization history:: Client reports receiving the 2nd dose of the Covid vaccine. - Social history:: Smoking status: Patient denies any tobacco usage or history of. ROS: 15:52 Constitutional: Negative for fever, chills, and weight loss, Eyes: Negative for injury, kdr pain, redness, and discharge, Neck: Negative for injury, pain, and swelling, Cardiovascular: Negative for chest pain, palpitations, and edema, Respiratory: Negative for shortness of breath, cough, wheezing, and pleuritic chest pain. 15:52 Abdomen/GI: Positive for nausea and vomiting, Negative for diarrhea, constipation, abdominal cramps, abdominal distension, anorexia, dysphagia, hematemesis, black/tarry stool, rectal pain, rectal bleeding, bowel incontinence. Exam: 15:52 Constitutional: This is a well developed, well nourished patient who is awake, alert, kdr and in no acute distress. Head/Face: Normocephalic, atraumatic. Eyes: Pupils equal round and reactive to light, extra-ocular motions intact. Lids and lashes normal. Conjunctiva and sclera are non-icteric and not injected. Cornea within normal limits. Periorbital areas with no swelling, redness, or edema. Neck: Trachea midline, no thyromegaly or masses palpated, and no cervical lymphadenopathy. Supple, full range of motion without nuchal rigidity, or vertebral point tenderness. No Meningismus. Chest/axilla: Normal chest wall appearance and motion. Nontender with no deformity. No lesions are appreciated. Cardiovascular: Regular rate and rhythm with a normal S1 and S2. No gallops, murmurs, or rubs. Normal PMI, no JVD. No pulse deficits. Respiratory: Lungs have equal breath sounds bilaterally, clear to auscultation and percussion. No rales, rhonchi or wheezes noted. No increased work of breathing, no retractions or nasal flaring. Abdomen/GI: Soft, non-tender, with normal bowel sounds. No distension or tympany. No guarding or rebound. No evidence of tenderness throughout. Back: No spinal tenderness. No costovertebral tenderness. Full range of motion. Skin: Warm, dry with normal turgor. Normal color with no rashes, no lesions, and no evidence of cellulitis. MS/ Extremity: Pulses equal, no cyanosis. Neurovascular intact. Full, normal range of motion. Neuro: Awake and alert, GCS 15, oriented to person, place, time, and situation. Cranial nerves II-XII grossly intact. Motor strength 5/5 in all extremities. Sensory grossly intact. Cerebellar exam normal. Normal gait. Psych: Awake, alert, with orientation to person, place and time. Behavior, mood, and affect are within normal limits. Vital Signs: 12:34 BP 132 / 76; Pulse 104; Resp 18; Temp 98.5(O); Pulse Ox 98% on R/A; Weight 104.78 kg; nj1 Height 5 ft. 5 in. ; Pain 5/10; 12:52 BP 102 / 78; Pulse 111; Resp 16; Temp 98.2(O); Pulse Ox 99% on R/A; Weight 104.78 kg; me1 Height 5 ft. 5 in. ; Pain 5/10; 14:13 BP 102 / 67; Pulse 104; Resp 17; Pulse Ox 98% on R/A; me1 14:30 BP 116 / 89; Pulse 93; Resp 17; Pulse Ox 100% on R/A; me1 12:52 Body Mass Index 38.44 (104.78 kg, 165.1 cm) me1 12:34 Pain Scale: Adult nj1 12:52 Pain Scale: Adult me1 MDM: 15:03 Patient medically screened. kdr 15:52 Data reviewed: vital signs, nurses notes. ED course: Patient improved with the kdr interventions given. She was discharged in good condition.. 05/19 13:13 Order name: CBC with Diff; Complete Time: 13:53 kdr 05/19 13:13 Order name: CMP; Complete Time: 15:04 kdr 05/19 13:13 Order name: Lipase; Complete Time: 15:04 kdr 05/19 13:13 Order name: Test, Urine kdr 05/19 13:13 Order name: IV Saline Lock; Complete Time: 14:01 kdr 05/19 13:13 Order name: Labs collected and sent; Complete Time: 14:01 kdr Administered Medications: 13:43 Drug: NS 0.9% IV 1000 ml Route: IV; Rate: 1 bolus; Site: left antecubital; me1 15:17 Follow up: IV Status: Completed infusion; IV Intake: 1000ml me1 13:43 Drug: Ondansetron IVP 4 mg Route: IVP; Site: left antecubital; me1 13:43 Drug: Famotidine IVP 20 mg Route: IVP; Site: left antecubital; me1 14:10 Drug: metoCLOPramide IVP 10 mg Route: IVP; Site: left antecubital; me1 15:20 Follow up: Response: Nausea is decreased me1 15:00 Not Given (Patient Refused): NS 0.45 % with KCl IV 20 mEq/L 1000 ml IV at 125 ml/hr onceph Disposition Summary: 05/19/23 15:03 Discharge Ordered Location: Home kdr Problem: an ongoing problem kdr Symptoms: have improved kdr Condition: Stable kdr Diagnosis - Nausea with vomiting, unspecified kdr Followup: kdr - With: Samson, Mike, DO - When: 2 - 3 days - Reason: If symptoms return, Further diagnostic work-up, Recheck today's complaints, Continuance of care, Re-evaluation by your physician Discharge Instructions: - Discharge Summary Sheet kdr - Nausea and Vomiting, Adult, [id number] kdr Forms: - Medication Reconciliation Form kdr - Thank You Letter kdr - Patient Portal Instructions kdr Prescriptions: - Reglan 10 mg Oral Tablet - take 1 tablet by ORAL route every 6 hours take 30 minutes before meals and at kdr bedtime; 20 tablet; Refills: 0, Product Selection Permitted - Pepcid 20 mg Oral Tablet - take 1 tablet by ORAL route once daily; 20 tablet; Refills: 0, Product kdr Selection Permitted Signatures: Dispatcher [employer] Galindo Bass MD MD kdr Selena Alvarenga RN RN nj1 Montse Manley RN RN me1 Naomi Herrera RN ph
[2023-05-19 15:20] LABS: Specific Gravity > 1.030 (1.005-1.030)
[2023-05-19 15:29] VITALS: TEMP 98.2
[2023-05-19 15:31] VITALS: BP 116/89; O2SAT 100
== END 2023-05-19 15:16 | disposition home or self-care (01) ==
LOC: ER 12:26
DX: R11.2 Nausea with vomiting, unspecified (principal); R50.9 Fever, unspecified; Z88.0 Allergy status to penicillin; F41.9 Anxiety disorder, unspecified
CPT/HCPCS: 85025; 36415; 81025; 83690; 80053; J2765; J3480; J2405; J7030